=== PATIENT | female | born 1975 | race Two or more races ===

== ENCOUNTER 2018-11-15 11:08 | Inpatient (IN) | payer OTHER ==
[~2018-11-15] VITALS: Ht 160 cm; Wt 97.1 kg
[2018-11-27] MEDS ORDERED: TIROSINT50 MCG PO (15:30)
[2018-11-27] MEDS ORDERED: COD LIVER OIL1 EACH PO (15:30)
[2018-11-27] MEDS ORDERED: TOPROL XL25 M1 PO (15:31)
[2018-12-06] MEDS ORDERED: PERCOCET 5-3251 EACH PO (09:31)
[2018-12-06] MEDS ORDERED: INTESTINEX680 M1 PO (09:31)
== END 2018-12-06 10:03 | disposition home or self-care (01) | DRG 331 ==
LOC: EDUNIT# 11-27 11:15 → SURG 11-27 11:15 → O/R 12-03 06:30 → SURG 12-03 06:30
PROVIDERS: ADMIT Surgery
PROC: 07TB4ZZ Resection of Mesenteric Lymphatic, Percutaneous Endoscopic Approach (ICD-10-PCS; 2018-12-03)
PROC: 0DJD8ZZ Inspection of Lower Intestinal Tract, Via Natural or Artificial Opening Endoscopic (ICD-10-PCS; 2018-12-03)
PROC: 4A12X4Z Monitoring of Cardiac Electrical Activity, External Approach (ICD-10-PCS; 2018-12-03)
PROC: 0DTN4ZZ Resection of Sigmoid Colon, Percutaneous Endoscopic Approach (ICD-10-PCS; principal; 2018-12-03 10:45)
DX: C18.7 Malignant neoplasm of sigmoid colon (principal); K64.1 Second degree hemorrhoids; G47.33 Obstructive sleep apnea (adult) (pediatric); I11.9 Hypertensive heart disease without heart failure; G35 Multiple sclerosis; E66.01 Morbid (severe) obesity due to excess calories; E03.8 Other specified hypothyroidism

== ENCOUNTER → 2018-11-15 12:26 | Outpatient (CLI) | payer OTHER | END | disposition home or self-care (01) | LOC: LAB 12:26 | DX: C18.7 Malignant neoplasm of sigmoid colon (principal) ==

== ENCOUNTER 2018-11-22 09:16 | Outpatient (CLI) | payer OTHER | END 2018-11-22 16:40 | disposition home or self-care (01) | LOC: LAB 09:16 | DX: C18.7 Malignant neoplasm of sigmoid colon (principal); R59.0 Localized enlarged lymph nodes; R15.9 Full incontinence of feces; K59.09 Other constipation; K92.2 Gastrointestinal hemorrhage, unspecified ==

== ENCOUNTER 2018-11-26 12:17 | Outpatient (CLI) | payer OTHER ==
[2018-11-27] MEDS ORDERED: COD LIVER OIL1 EACH PO (15:30)
[2018-11-27] MEDS ORDERED: TIROSINT50 MCG PO (15:30)
[2018-11-27] MEDS ORDERED: TOPROL XL25 M1 PO (15:31)
== END 2018-11-26 16:44 | disposition home or self-care (01) ==
LOC: RAD 12:17 → TOM 11-27 08:45
DX: C18.7 Malignant neoplasm of sigmoid colon (principal); R59.0 Localized enlarged lymph nodes; Z01.810 Encounter for preprocedural cardiovascular examination; I10 Essential (primary) hypertension; R15.9 Full incontinence of feces; K59.09 Other constipation; K92.2 Gastrointestinal hemorrhage, unspecified
CPT/HCPCS: 71046; 72270; 74178; Q9965

== ENCOUNTER 2018-12-02 06:14 | Day surgery (SDC) | payer OTHER ==
[~2018-12-02 06:14] MED LIST: COD LIVER OIL1 EACH PO; TIROSINT50 MCG PO; TOPROL XL25 M1 PO
== END 2018-12-02 10:33 | disposition home or self-care (01) ==
LOC: AMB-ENDOS 06:14
DX: C18.7 Malignant neoplasm of sigmoid colon (principal)

== ENCOUNTER 2018-12-31 09:30 | Emergency (ER) | payer OTHER ==
[~2018-12-31] VITALS: Ht 160 cm; Wt 92.5 kg
[~2018-12-31 09:30] MED LIST changes: +INTESTINEX680 M1 PO; +PERCOCET 5-3251 EACH PO
[2018-12-31] MEDS ORDERED: BETASERON0.3 MG (09:40)
[2018-12-31] MEDS ORDERED: INTESTINEX680 M1 PO (14:56)
[2018-12-31] MEDS ORDERED: PEPCID AC20 MG PO (14:56)
== END 2018-12-31 15:41 ==
LOC: ER 09:30
DX: K52.89 Other specified noninfective gastroenteritis and colitis (principal)

== ENCOUNTER 2019-01-03 10:33 | Inpatient (IN) | payer OTHER ==
[~2019-01-03] VITALS: Ht 27.9 cm; Wt 5.0 kg
[~2019-01-03 10:33] MED LIST changes: +BETASERON0.3 MG; +PEPCID AC20 MG PO
[2019-01-10] MEDS ORDERED: INTESTINEX680 M1 PO (12:41)
[2019-01-14] MEDS ORDERED: FOLGARD TABLET1 EACH PO (10:04)
[2019-01-14] MEDS ORDERED: LEVO-T50 MCG PO (10:05)
[2019-01-14] MEDS ORDERED: NEURIN SL (10:31)
[2019-01-14] MEDS ORDERED: INTESTINEX PO (10:32)
[2019-01-14] MEDS ORDERED: INTEGRA CAPSUL1 EACH PO (10:32)
[2019-01-14] MEDS ORDERED: DIFLUCAN PO (10:33)
== END 2019-01-10 15:11 | disposition home or self-care (01) | DRG 392 ==
LOC: ER 10:33 → SURG 01-04 14:03
PROVIDERS: ADMIT Surgery
PROC: 4A033R1 Measurement of Arterial Saturation, Peripheral, Percutaneous Approach (ICD-10-PCS; 2019-01-04)
PROC: B246ZZZ Ultrasonography of Right and Left Heart (ICD-10-PCS; principal; 2019-01-05)
PROC: 02HV33Z Insertion of Infusion Device into Superior Vena Cava, Percutaneous Approach (ICD-10-PCS; 2019-01-05)
PROC: 4A12X4Z Monitoring of Cardiac Electrical Activity, External Approach (ICD-10-PCS; 2019-01-05)
DX: K52.89 Other specified noninfective gastroenteritis and colitis (principal); C18.7 Malignant neoplasm of sigmoid colon; C78.7 Secondary malignant neoplasm of liver and intrahepatic bile duct; R65.10 Systemic inflammatory response syndrome (SIRS) of non-infectious origin without acute organ dysfunction; N39.0 Urinary tract infection, site not specified; K62.5 Hemorrhage of anus and rectum; K64.1 Second degree hemorrhoids; G35 Multiple sclerosis; E03.8 Other specified hypothyroidism; E66.09 Other obesity due to excess calories; I11.9 Hypertensive heart disease without heart failure; E86.0 Dehydration; E87.8 Other disorders of electrolyte and fluid balance, not elsewhere classified; R63.0 Anorexia; D63.0 Anemia in neoplastic disease; Z85.038 Personal history of other malignant neoplasm of large intestine; Z08 Encounter for follow-up examination after completed treatment for malignant neoplasm

== ENCOUNTER → 2019-01-24 | Day surgery (SDC) | payer OTHER ==
[~2019-01-24] MED LIST changes: +DIFLUCAN PO; +FOLGARD TABLET1 EACH PO; +INTEGRA CAPSUL1 EACH PO; +INTESTINEX PO; +LEVO-T50 MCG PO; +NEURIN SL
== END | disposition home or self-care (01) ==
LOC: ADM 01-14 07:45 → CIR.AMB 01-17 07:45
DX: C18.7 Malignant neoplasm of sigmoid colon (principal)
CPT/HCPCS: 36561; C1751

== ENCOUNTER 2019-03-24 08:35 | Outpatient (CLI) | payer OTHER | END 2019-03-24 15:00 | disposition home or self-care (01) | LOC: LAB 08:35 | DX: C18.7 Malignant neoplasm of sigmoid colon (principal) ==

== ENCOUNTER 2019-04-07 09:09 | Outpatient (CLI) | payer OTHER | END 2019-04-07 15:00 | disposition home or self-care (01) | LOC: LAB 09:09 | DX: C18.7 Malignant neoplasm of sigmoid colon (principal); C78.7 Secondary malignant neoplasm of liver and intrahepatic bile duct ==

== ENCOUNTER → 2019-04-23 | Emergency (ER) | payer OTHER ==
[~2019-04-23] VITALS: Ht 160 cm; Wt 88.0 kg
[~2019-04-23] MED LIST changes: +INTESTINEX680 M1; +TOPROL XL50 M1
== END | disposition home or self-care (01) ==
LOC: ER 15:15
DX: E86.0 Dehydration (principal); N30.81 Other cystitis with hematuria; C18.9 Malignant neoplasm of colon, unspecified; C78.7 Secondary malignant neoplasm of liver and intrahepatic bile duct

== ENCOUNTER 2019-05-12 09:26 | Outpatient (CLI) | payer OTHER | END 2019-05-12 09:30 | disposition home or self-care (01) | LOC: LAB 09:26 | DX: C18.7 Malignant neoplasm of sigmoid colon (principal); C78.7 Secondary malignant neoplasm of liver and intrahepatic bile duct ==

== ENCOUNTER 2019-05-17 08:33 | Outpatient (CLI) | payer OTHER | END 2019-05-17 08:39 | disposition home or self-care (01) | LOC: LAB 08:33 | DX: C18.7 Malignant neoplasm of sigmoid colon (principal); C78.7 Secondary malignant neoplasm of liver and intrahepatic bile duct; Z51.11 Encounter for antineoplastic chemotherapy; Z51.12 Encounter for antineoplastic immunotherapy ==

== ENCOUNTER 2019-05-31 07:49 | Outpatient (CLI) | payer OTHER | END 2019-05-31 08:19 | disposition home or self-care (01) | LOC: LAB 07:49 | DX: C18.7 Malignant neoplasm of sigmoid colon (principal); C78.7 Secondary malignant neoplasm of liver and intrahepatic bile duct; Z51.11 Encounter for antineoplastic chemotherapy ==

== ENCOUNTER → 2019-06-14 07:50 | Outpatient (CLI) | payer OTHER | END | disposition home or self-care (01) | LOC: LAB 07:50 | DX: C18.7 Malignant neoplasm of sigmoid colon (principal); C78.7 Secondary malignant neoplasm of liver and intrahepatic bile duct ==

== ENCOUNTER 2019-07-05 08:43 | Outpatient (CLI) | payer OTHER | END 2019-07-05 08:54 | disposition home or self-care (01) | LOC: LAB 08:43 | DX: C18.7 Malignant neoplasm of sigmoid colon (principal); C78.7 Secondary malignant neoplasm of liver and intrahepatic bile duct ==

== ENCOUNTER 2019-07-17 09:08 | Outpatient (CLI) | payer OTHER | END 2019-07-17 09:32 | disposition home or self-care (01) | LOC: TOM 09:08 | DX: C18.7 Malignant neoplasm of sigmoid colon (principal); C78.7 Secondary malignant neoplasm of liver and intrahepatic bile duct | CPT/HCPCS: 71270; 74178; Q9965 ==

== ENCOUNTER 2019-07-19 08:52 | Outpatient (CLI) | payer OTHER | END 2019-07-19 09:10 | disposition home or self-care (01) | LOC: LAB 08:52 | DX: Z51.11 Encounter for antineoplastic chemotherapy (principal) ==

== ENCOUNTER 2019-07-29 11:18 | Outpatient (CLI) | payer OTHER | END 2019-07-29 12:00 | disposition home or self-care (01) | LOC: MRI 11:18 | DX: G35 Multiple sclerosis (principal) | CPT/HCPCS: 70553; A9575 ==

== ENCOUNTER → 2019-08-02 08:38 | Outpatient (CLI) | payer OTHER | END | disposition home or self-care (01) | LOC: LAB 08:38 | DX: C18.7 Malignant neoplasm of sigmoid colon (principal); C78.7 Secondary malignant neoplasm of liver and intrahepatic bile duct; Z51.11 Encounter for antineoplastic chemotherapy ==

== ENCOUNTER 2019-08-16 07:56 | Outpatient (CLI) | payer OTHER | END 2019-08-16 08:06 | disposition home or self-care (01) | LOC: LAB 07:56 | DX: C18.7 Malignant neoplasm of sigmoid colon (principal); C78.7 Secondary malignant neoplasm of liver and intrahepatic bile duct; Z51.11 Encounter for antineoplastic chemotherapy ==

== ENCOUNTER 2019-11-01 07:19 | Outpatient (CLI) | payer OTHER | END 2019-11-01 07:27 | disposition home or self-care (01) | LOC: LAB 07:19 | DX: C18.7 Malignant neoplasm of sigmoid colon (principal); C78.7 Secondary malignant neoplasm of liver and intrahepatic bile duct ==

== ENCOUNTER → 2019-12-06 07:06 | Outpatient (CLI) | payer OTHER | END | disposition home or self-care (01) | LOC: LAB 07:06 | PROVIDERS: ATTEND Internal Medicine | DX: C18.7 Malignant neoplasm of sigmoid colon (principal); C78.7 Secondary malignant neoplasm of liver and intrahepatic bile duct ==